=== PATIENT | female | born 1960 | race Caucasian/White ===

== ENCOUNTER 2019-02-27 04:21 | Emergency (ER) | payer SELFPAY ==
[~2019-02-27] VITALS: Ht 157.5 cm; Wt 70.5 kg
[2019-02-27] MEDS ORDERED: MORPHINE 10 MG/ML 1ML VIAL (J2270) IV ONE (06:00)
[2019-02-27] MEDS ORDERED: NS 1,000 ML IV ONE (06:00)
[2019-02-27 06:01] LABS: HEMATOCRIT 34.8 % (36.0-47.0); HEMOGLOBIN 8.6 g/dl (12.0-15.5); MEAN CORPUSCULAR HEMOGLOBIN 25.4 pg (27.0-33.0); MEAN CORPUSCULAR HGB CONC 24.7 g/dl (32.0-36.5); RED BLOOD COUNT 3.38 10^6/uL (4.00-5.40)
[2019-02-27 06:09] LABS: ALBUMIN 3.2 GM/DL (3.2-5.2); ALT/SGPT 20 U/L (12-78); BILIRUBIN,DIRECT 0.2 MG/DL (0.0-0.2); BILIRUBIN,TOTAL 0.8 MG/DL (0.2-1.0); BLOOD UREA NITROGEN 11 MG/DL (7-18); CALCIUM LEVEL 9.8 MG/DL (8.5-10.1); CARBON DIOXIDE LEVEL 28 MEQ/L (21-32); CHLORIDE LEVEL 103 MEQ/L (98-107); CREATININE FOR GFR 0.93 MG/DL (0.55-1.30); GLOMERULAR FILTRATION RATE > 60.0 (>51); GLUCOSE, FASTING 111 MG/DL (70-100); LIPASE 118 U/L (73-393); SODIUM LEVEL 139 MEQ/L (136-145); TOTAL PROTEIN 6.8 GM/DL (6.4-8.2)
[2019-02-27 06:29] LABS: WHITE BLOOD COUNT 435.2 10^3/uL (4.0-10.0)
[2019-02-27] MEDS ORDERED: ISOVUE-370 76% 100ML VIAL (Q9967) As Ordered ONE (06:30)
[2019-02-27 06:31] LABS: PLATELET COUNT, AUTOMATED 77 10^3/uL (150-450)
[2019-02-27 06:40] LABS: ATYPICAL LYMPH 1 % (0-5); LYMPHOCYTES 94 % (16-44); METAMYELOCYTES 1 % (0-0); MONOCYTES 1 % (0-5); MYELOCYTES 1 % (0-0); NEUTROPHILS 2 % (28-66); PLATELET ESTIMATE DECREASED (NORMAL)
[2019-02-27 06:42] LABS: SMUDGE CELLS 2+
[2019-02-27 06:43] LABS: ANISOCYTOSIS 1+
[2019-02-27] MEDS ORDERED: TUMSCHW16 PO (06:50)
--- NOTE | 2019-02-27 07:22 | REPVR ---
PROCEDURE INFORMATION: Exam: CT Abdomen And Pelvis With Contrast Exam date and time: 02/27/2019 6:36 AM Age: 58 years old Clinical history: Abdominal pain; Flank; Left; Additional info: L pain TECHNIQUE: Imaging protocol: Computed tomography of the abdomen and pelvis with intravenous contrast. Radiation optimization: All CT scans at this facility use at least one of these dose optimization techniques: automated exposure control; mA and/or kV adjustment per patient size (includes targeted exams where dose is matched to clinical indication); or iterative reconstruction. Contrast material: ISOVUE 370; Contrast volume: 100 ml; Contrast route: IV; COMPARISON: No relevant prior studies available. FINDINGS: Liver: The liver is enlarged measuring up to 19.1 cm in midclavicular line. Gallbladder and bile ducts: Normal. No calcified stones. No ductal dilation. Pancreas: Normal. No ductal dilation. Spleen: The spleen is markedly enlarged measuring up to 18.3 cm in length. Adrenals: Normal. No mass. Kidneys and ureters: Normal. No hydronephrosis. Stomach and bowel: There is stranding and edema surrounding the colonic splenic flexure with edema and fluid seen tracing superiorly around the spleen. Appendix: No evidence of appendicitis. Intraperitoneal space: Unremarkable. No free air. No significant fluid collection. Vasculature: There are bilateral, left more than right, dilated vessels/varices. Lymph nodes: There are bilateral retrocrural prominent lymph nodes in addition to prominent lymph nodes in the inferior posterior mediastinum. Multiple enlarged retroperitoneal lymph nodes seen in the left periaortic, aortocaval space measuring up to 4.7 cm in length. Enlarged bilateral inguinal lymph nodes seen measuring up to 3.2 cm. Enlarged iliac chain lymph nodes are also seen. There are multiple enlarged lesser sac, aime hepatis and mesenteric lymph nodes. Bladder: Unremarkable as visualized. Reproductive: Unremarkable as visualized. Bones/joints: There is significant L5 S1 disc degenerative changes with grade 1 retrolisthesis of L5 on S1 coupled with facet degenerative changes narrowing the neural foramina. Soft tissues: Unremarkable. IMPRESSION: 1. Diffuse lymphadenopathy in the posterior mediastinum, retrocrural region, abdominal mesentery, retroperitoneum, iliac chain and inguinal regions suspicious for lymphoproliferative disorder/lymphoma. 2. Marked hepatosplenomegaly. 3. Stranding and edema adjacent to the colonic splenic flexure with some fluid extending superiorly adjacent to the spleen. Findings could be secondary to colitis or diverticulitis. No obvious diverticular disease seen. Electronically signed by: Gideon Harris On 02/27/2019 07:22:31 AM
[2019-02-27] MEDS ORDERED: MORPHINE 4 MG/ML 1ML VIAL/SYRINGE (J2270) As Ordered ONE (07:32)
[2019-02-27 07:35] LABS: APPEARANCE, URINE CLEAR (CLEAR); BACTERIA, URINE AUTO 1+ (NEGATIVE); BILIRUBIN, URINE AUTO NEGATIVE (NEGATIVE); BLOOD, URINE BLOOD 3+ (NEGATIVE); COLOR, URINE YELLOW (YELLOW); GLUCOSE, URINE (UA) AUTO NEGATIVE (NEGATIVE); KETONE, URINE AUTO NEGATIVE (NEGATIVE); LEUKOCYTE ESTERASE, URINE AUTO NEGATIVE (NEGATIVE); MUCUS, URINE SMALL (NEGATIVE); NITRITE, URINE AUTO POSITIVE (NEGATIVE); PROTEIN, URINE AUTO NEGATIVE (NEGATIVE); RBC, URINE AUTO 7 /HPF (0-3); SPECIFIC GRAVITY URINE AUTO 1.043 (1.002-1.035); SQUAMOUS EPITHELIAL CELL UR AU 1 /HPF (0-6); UROBILINOGEN, URINE AUTO 0.2 mg/dL (0.0-2.0); WBC, URINE AUTO 1 /HPF (0-3)
[2019-02-27] MEDS ORDERED: MORPHINE 4 MG/ML 1ML VIAL/SYRINGE (J2270) IV ONE (07:45)
[2019-02-27 09:23] VITALS: BP 133/70
--- NOTE | 2019-02-27 09:48 | REP ---
REASON: Abdominal pain. FINDINGS: The technique utilized in obtaining the radiograph has magnified the cardiac silhouette and accentuated the interstitial markings. The superior mediastinal structures are midline. The cardiac silhouette is unremarkable in size, shape, and position. The diaphragmatic surfaces of the lungs are regular, and the costophrenic angles are clear. The pulmonary ovalle are clear. The imaged osseous structures are intact. IMPRESSION: There is no acute cardiopulmonary disease. Electronically Signed by Mina Michaels DO 02/27/2019 09:53 A
== END 2019-02-27 09:29 | disposition short-term general hospital (02) ==
LOC: M ED 04:21
DX: C95.90 Leukemia, unspecified not having achieved remission (principal); D57.02 Hb-SS disease with splenic sequestration
CPT/HCPCS: 36415; 71045; 74177; 80048; 80076; 81001; 83690; 85025; 85049; 85055; 87088; 87186; 96374; 96376; 99284; J2270; Q9967